=== PATIENT | male | born 1985 | race Caucasian/White ===

== ENCOUNTER 2021-07-30 18:10 | Emergency (ER) | payer OTHER ==
[~2021-07-30] VITALS: Ht 180.3 cm; Wt 68.2 kg
[2021-07-30] MEDS ORDERED: normal saline 1000ML IV soln IV ONE (18:15)
--- NOTE | 2021-07-30 18:42 | NUR ---
UNABLE TO COMPLETE MY ASSESSMENT. RLE IS BANDAGED FROM KNEE TO ANKLE. PURULENT DISCHARGE IS SEEPING THROUGH BANDAGING. PT A&OX4. LAB, XRAY, AND DR JOSEPH AT BEDSIDE. PT REPORTS THAT HE WANTS TO LEAVE AGAINST MEDICAL ADVICE AND GO TO ANOTHER HOSPITAL. HE REFUSED LABWORK FROM [facility] AND REFUSED IV PLACEMENT FROM [place]. HE HAS SIGNED AN AMA FORM. THE RISKS INVOLVED WITH LEAVING ILL AND AGAINST MEDICAL ADVICE HAVE BEEN FULLY DISCUSSED. PT VERBALIZED UNDERSTANDING. HE WAS TAKEN TO LOBBY ON A WHEELCHAIR WHERE HIS FAMILY WILL MEET HIM AND TAKE HIM TO ANOTHER FACILITY. PT REPORTS THAT HE WAS INITIALLY SEEN AT [facility] IN [place] AND WANTS TO GO BACK THERE DESPITE SIGNING OUT AMA FROM THERE EARLIER WELL.
[2021-07-30 18:58] VITALS: BP 99/45
== END 2021-07-30 18:52 | disposition home or self-care (01) ==
LOC: ER 18:11
DX: I95.9 Hypotension, unspecified (principal); M79.604 Pain in right leg
CPT/HCPCS: 99281